=== PATIENT | female | born 1980 | race Caucasian/White ===

== ENCOUNTER 2018-07-30 22:34 | Emergency (ER) | payer SELFPAY ==
[~2018-07-30] VITALS: Ht 172.7 cm; Wt 95.0 kg
[2018-07-30 22:45] VITALS: BP 111/79
[2018-07-30] MEDS ORDERED: LORA-446 PO (23:10)
[2018-07-30] MEDS ORDERED: ONDANSETRON ODT 4 MG ONE (23:27)
[2018-07-30] MEDS ORDERED: ONDANSETRON ODT 4 MG PO ONE (23:30)
[2018-07-30 23:44] LABS: HCG UR SG 1.003 (1.003-1.030)
[2018-07-30 23:48] LABS: BASOPHILS # (AUTO) 0.06 x10^3/uL (0-0.1); BASOPHILS % (AUTO) 1 % (0-1); EOSINOPHILS # (AUTO) 0.58 x10^3/uL (0-0.4); EOSINOPHILS % (AUTO) 6 % (1-7); LYMPHOCYTES # (AUTO) 4.54 x10^3/uL (1-3.4); LYMPHOCYTES % (AUTO) 44 % (22-44); MD NO; MEAN CORPUSCULAR HEMOGLOBIN 33.9 pg (27.0-34.8); MEAN PLATELET VOLUME 7.5 fL (7.4-10.4); MONOCYTES # (AUTO) 0.59 x10^3/uL (0.2-0.8); MONOCYTES % (AUTO) 6 % (2-9); NEUTROPHILS # (AUTO) 4.48 x10^3/uL (1.8-6.8); NEUTROPHILS % (AUTO) 44 % (42-75); PLATELET COUNT 348 x10^3/uL (130-400); RED BLOOD COUNT 4.58 x10^6/uL (3.82-5.3); RED CELL DISTRIBUTION WIDTH 13.6 % (9.6-15.2)
[2018-07-30 23:58] LABS: BARBITURATE SCREEN, URINE Negative (Negative); BENZODIAZEPINE SCREEN, URINE Negative (Negative); CANNABINOID SCREEN, URINE Negative (Negative); COCAINE SCREEN, URINE Negative (Negative); METHADONE SCREEN, URINE Negative (Negative); OPIATE SCREEN, URINE Negative (Negative)
[2018-07-30 23:58] LABS: ALANINE AMINOTRANSFERASE 22 U/L (12-78); ALBUMIN 3.8 g/dL (3.4-5.0); ANION GAP 10 mmol/L (5-15); CALCIUM 8.8 mg/dL (8.5-10.1); CHLORIDE 115 mmol/L (98-107); CREATININE 0.91 mg/dL (0.55-1.02)
[2018-07-30 23:59] LABS: SALICYLATE LEVEL < 1.7 mg/dL (2.8-20.0)
[2018-07-31 00:01] LABS: ACETAMINOPHEN < 2 mcg/mL (10-30); ALKALINE PHOSPHATASE 56 U/L (45-117); BILIRUBIN,TOTAL 0.3 mg/dL (0.2-1.0); TOTAL PROTEIN 7.7 g/dL (6.4-8.2)
[2018-07-31 00:01] LABS: AMPHETAMINE SCREEN, URINE Negative (Negative)
== END 2018-07-31 01:13 | disposition home or self-care (01) ==
LOC: ED 07-31 00:09
DX: F33.9 Major depressive disorder, recurrent, unspecified (principal); F17.200 Nicotine dependence, unspecified, uncomplicated
CPT/HCPCS: 36415; 80053; 80307; 80329; 81025; 85025; 99284; G0480

== ENCOUNTER → 2019-11-12 | Outpatient (CLI) | payer OTHER ==
[~2019-11-12] MED LIST: LORA-446 PO
== END | disposition home or self-care (01) ==
LOC: CFH 14:02
PROVIDERS: ATTEND Nurse Practitioner Women's Health
DX: S29.019A Strain of muscle and tendon of unspecified wall of thorax, initial encounter (principal); X58.XXXA Exposure to other specified factors, initial encounter; Y92.89 Other specified places as the place of occurrence of the external cause; Y93.89 Activity, other specified; Y99.8 Other external cause status
CPT/HCPCS: 76642; 77066; G0279

== ENCOUNTER 2020-11-13 08:14 | Outpatient (CLI) | payer OTHER | END 2020-11-13 23:59 | disposition home or self-care (01) | LOC: CFH 08:14 | PROVIDERS: ATTEND Nurse Practitioner Women's Health | DX: N63.10 Unspecified lump in the right breast, unspecified quadrant (principal) | CPT/HCPCS: 76642; 77062; 77066; G0279 ==

== ENCOUNTER 2021-03-26 22:39 | Emergency (ER) | payer OTHER ==
[~2021-03-26] VITALS: Ht 170.2 cm; Wt 96.0 kg
--- NOTE | 2021-03-26 23:02 | NUR ---
PT IN GOWN IN [facility]. DR KULKARNI AT FOR PT HISTORY AND ASSESSMENT. PT VERBALIZES UNDERSTANDING OF POC .CALL LIGHT IS WITHIN REACH OF PT AT THIS TIME.
--- NOTE | 2021-03-26 23:19 | NUR ---
PT TO [facility] VIA [email or web address] AT THIS TIME.
[2021-03-27 00:10] LABS: ALANINE AMINOTRANSFERASE 62 U/L (12-78); ALBUMIN 3.6 g/dL (3.4-5.0); ANION GAP 6 mmol/L (5-15); CHLORIDE 109 mmol/L (98-107); CREATININE 0.96 mg/dL (0.55-1.02)
[2021-03-27 00:13] LABS: ALKALINE PHOSPHATASE 50 U/L (45-117); BILIRUBIN,TOTAL 0.2 mg/dL (0.2-1.0); TOTAL PROTEIN 7.3 g/dL (6.4-8.2)
[2021-03-27 00:19] LABS: BASOPHILS % (AUTO) 1 % (0-1); EOSINOPHILS % (AUTO) 3 % (1-7); LYMPHOCYTES % (AUTO) 40 % (22-44); MEAN CORPUSCULAR HEMOGLOBIN 36.2 pg (27.0-34.8); MEAN CORPUSCULAR HGB CONC 33.6 g/dL (32.4-35.8); MEAN PLATELET VOLUME 7.5 fL (7.4-10.4); MONOCYTES % (AUTO) 11 % (2-9); NEUTROPHILS % (AUTO) 45 % (42-75); PLATELET COUNT 248 x10^3/uL (130-400); RED BLOOD COUNT 3.97 x10^6/uL (3.82-5.3); RED CELL DISTRIBUTION WIDTH 16.1 % (9.6-15.2)
--- NOTE | 2021-03-27 00:58 | NUR ---
ASSUMED CARE FROM Estrada BARAJAS
--- NOTE | 2021-03-27 00:58 | NUR ---
REPORT OF PT TO JENN FLORES. ALL QUESTIONS ANSWERED.
[2021-03-27 01:09] VITALS: BP 135/69
== END 2021-03-27 01:12 | disposition home or self-care (01) ==
LOC: ED 23:00
DX: R60.0 Localized edema (principal); F10.20 Alcohol dependence, uncomplicated; F17.200 Nicotine dependence, unspecified, uncomplicated; Y90.0 Blood alcohol level of less than 20 mg/100 ml
CPT/HCPCS: 36415; 80053; 85025; 93005; 99285

== ENCOUNTER 2021-04-25 20:51 | Emergency (ER) | payer OTHER ==
[~2021-04-25] VITALS: Ht 170.2 cm; Wt 93.4 kg
[2021-04-25 21:05] VITALS: BP 126/64
--- NOTE | 2021-04-25 21:17 | NUR ---
PT LEFT AMA. SIGNED PAPERWORK
== END 2021-04-25 21:19 | disposition left against medical advice (07) ==
LOC: ED 21:00
DX: F10.10 Alcohol abuse, uncomplicated (principal); Y90.0 Blood alcohol level of less than 20 mg/100 ml
CPT/HCPCS: 99281

== ENCOUNTER 2021-05-18 15:29 | Emergency (ER) | payer OTHER ==
[~2021-05-18] VITALS: Ht 167.6 cm; Wt 90.0 kg
[2021-05-18] MEDS ORDERED: LORazepam 1MG TABLET PO ONE (16:00)
[2021-05-18 16:03] VITALS: BP 103/71
--- NOTE | 2021-05-18 16:09 | NUR ---
pt presents to ed with c/o ETOH withdrawals. per pt, last drink was around noon today. pt denies tremors/seizures but states she is feeling very anxious. pt cooperative, vss, nadn. JAQUELINE Mora at bedside for eval.
[2021-05-18] MEDS ORDERED: LORazepam 1MG TABLET ONE (16:11)
--- NOTE | 2021-05-18 16:18 | NUR ---
HELEN COLLECTED AND SENT. SAM BOONE AT BEDSIDE TO DISCUSS POC
[2021-05-18 16:34] LABS: BASOPHILS % (AUTO) 1 % (0-1); EOSINOPHILS % (AUTO) 1 % (1-7); LYMPHOCYTES % (AUTO) 30 % (22-44); MEAN CORPUSCULAR HEMOGLOBIN 36.9 pg (27.0-34.8); MEAN CORPUSCULAR HGB CONC 33.8 g/dL (32.4-35.8); MEAN PLATELET VOLUME 7.7 fL (7.4-10.4); MONOCYTES % (AUTO) 6 % (2-9); NEUTROPHILS % (AUTO) 61 % (42-75); PLATELET COUNT 269 x10^3/uL (130-400); RED CELL DISTRIBUTION WIDTH 13.7 % (9.6-15.2)
[2021-05-18 16:36] LABS: AMPHETAMINE SCREEN, URINE Negative (Negative); BARBITURATE SCREEN, URINE Negative (Negative); BENZODIAZEPINE SCREEN, URINE Negative (Negative); CANNABINOID SCREEN, URINE Negative (Negative); COCAINE SCREEN, URINE Negative (Negative); METHADONE SCREEN, URINE Negative (Negative); OPIATE SCREEN, URINE Negative (Negative)
[2021-05-18 16:46] LABS: ALBUMIN 3.8 g/dL (3.4-5.0); ANION GAP 13 mmol/L (5-15); CALCIUM 8.4 mg/dL (8.5-10.1); CHLORIDE 108 mmol/L (98-107)
[2021-05-18 16:49] LABS: ALANINE AMINOTRANSFERASE 131 U/L (12-78); ALKALINE PHOSPHATASE 63 U/L (45-117); BILIRUBIN,TOTAL 0.7 mg/dL (0.2-1.0); CREATININE 0.84 mg/dL (0.55-1.02); TOTAL PROTEIN 7.6 g/dL (6.4-8.2)
--- NOTE | 2021-05-18 17:24 | NUR ---
pt educated on dc instructions, verbalized understanding. amulatory to dc desk with steady gait.
== END 2021-05-18 17:33 | disposition home or self-care (01) ==
LOC: ED 15:40
DX: F10.20 Alcohol dependence, uncomplicated (principal); R11.2 Nausea with vomiting, unspecified; R00.0 Tachycardia, unspecified; F17.200 Nicotine dependence, unspecified, uncomplicated; Y90.0 Blood alcohol level of less than 20 mg/100 ml
CPT/HCPCS: 36415; 80053; 80307; 80320; 83735; 85025; 93005; 99284; G0480